=== PATIENT | male | born 1980 | race Caucasian/White ===

== ENCOUNTER 2017-07-22 11:08 | Emergency (ER) | payer OTHER ==
[2017-07-22 13:48] VITALS: BP 125/86
== END 2017-07-22 13:48 | disposition home or self-care (01) ==
LOC: ED 11:08
DX: S29.011A Strain of muscle and tendon of front wall of thorax, initial encounter (principal); S90.412A Abrasion, left great toe, initial encounter; R10.11 Right upper quadrant pain; R03.0 Elevated blood-pressure reading, without diagnosis of hypertension; V49.9XXA Car occupant (driver) (passenger) injured in unspecified traffic accident, initial encounter; Y93.89 Activity, other specified; Y99.8 Other external cause status; Y92.89 Other specified places as the place of occurrence of the external cause
CPT/HCPCS: J1885